=== PATIENT | female | born 1970 | race Caucasian/White ===

== ENCOUNTER → 2018-04-19 10:20 | Outpatient (CLI) | payer OTHER, SELFPAY ==
--- NOTE | 2018-04-19 10:27 | US_ITS ---
STUDY: ULTRASOUND TRANSVAGINAL CLINICAL: Female, 47 years old. Right upper quadrant pain TECHNIQUE: Transvaginal COMPARISON: None. FINDINGS: Normal uterine size measuring 8.7 cm in maximal craniocaudal dimension. There are no myometrial masses. Normal endometrial thickness measuring 11.6 mm. There are no endometrial masses, and there is no fluid in the endometrial cavity. Normal uterine cervix. Normal right ovary, measuring 2.1 x 2.0 x 1.3 cm. There are multiple follicles without a dominant cyst. Normal left ovary, measuring 3.1 x 3.1 x 2.8 cm. There are multiple follicles with a dominant simple cyst measuring 2.9 x 2.9 x 2.1 cm.. There is no minimal fluid in the pelvis, likely physiologic. Polycystic ovary disease: No. US/Transvaginal Non- IMPRESSION: Simple 2.9 cm left ovarian cyst Minimal free fluid in the cul-de-sac, likely physiologic Electronically Signed: Shawn Blue MD at 11:50 EDT , Service support ,
== END ==
PROVIDERS: Visit Provider Internal Medicine Gastroenterology
DX: R10.31 Right lower quadrant pain (principal)
CPT/HCPCS: 76830; 93976

== ENCOUNTER → 2018-08-08 10:10 | Outpatient (CLI) | payer OTHER, SELFPAY ==
[2018-08-09 20:07] LABS: Endomysial Antibody IgA Negative (Negative)
[2018-08-10 10:13] LABS: Immunoglobulin A 120 mg/dL (87-352); t-Transglutaminase IgA <2 U/mL (0-3)
== END ==
PROVIDERS: Family Provider Internal Medicine; PCP Internal Medicine; Referring Provider Internal Medicine Gastroenterology; Visit Provider Internal Medicine Gastroenterology
DX: R19.7 Diarrhea, unspecified (principal)
CPT/HCPCS: 36415; 82784; 83516; 86255

== ENCOUNTER 2022-04-08 07:44 | Day surgery (SDC) | payer OTHER, SELFPAY ==
--- NOTE | 2022-03-02 07:54 | PCM.HP.BLA ---
History and Physical Date of Admission: 03/11/22 Pre-Op History and Physical ? HPI: The patient is a 51 year old female presenting for discussion regarding surgical mgmt for mostly simple 11cm left ovarinan cyst. ? pre-operative visit. She is scheduled for left ovarian cystectomy- possible oophorectomy, and bilateral salpingectomy, possible right ovarian cystectomy, for left ovarian cyst on 03/11/22. Procedure discussed along with risks, benefits and complications. Other alternatives discussed for management. Consent form signed? Yes. ? ? PAST MEDICAL HISTORY PAST MEDICAL HISTORY Diagnosis Date ? Backache, unspecified ? ? Chest pain, atypical 12/30/2011 ? pinching; left chest ? Headache(784.0) ? ? Irritable bowel syndrome ? ? Other premature beats 07/19/2007 ? ? PAST SURGICAL HISTORY PAST SURGICAL HISTORY Procedure Laterality Date ? DELIVERY ONLY ? 06/13/02 ? EXCISION OF BENIGN LESION GREATER THAN 1.25 CM ? ? ? MOLES REMOVED ? UNSPECIFIED ORAL SURGERY PROCEDURE, BY REPORT ? ? ? WISDOM TEETH ? ? ? CURRENT MEDICATIONS Current Outpatient Medications Medication Sig Dispense Refill ? propranolol (INDERAL) 20 mg tablet Take 1.5 tablets by mouth twice daily. 240 tablet 3 ? vit C,C-Tz-kodsd-lutein-zeaxan (PRESERVISION AREDS-2) 250-90-40-1 mg Take 1 capsule by mouth twice daily with meals. ? ? ? triamcinolone acetonide (KENALOG) 0.1 % cream Apply 1 application to affected area three times daily. 30 g 0 ? CALCIUM CARBONATE/VITAMIN D3 (CALCIUM + D ORAL) Take by mouth twice daily. ? ? ? No current facility-administered medications for this visit. ? ? ALLERGIES: Adhesive Tape (Rosins), Dust Mites, Environmental [Other], Prevacid [Lansoprazole], and Zithromax [Azithromycin] ? PERSONAL HISTORY: SOCIAL HISTORY Social History ? Tobacco Use ? Smoking status: Never Smoker ? Smokeless tobacco: Never Used Vaping Use ? Vaping Use: Never used Substance Use Topics ? Alcohol use: No ? Drug use: No ? FAMILY HISTORY: FAMILY HISTORY FAMILY HISTORY Problem Relation Age of Onset ? Hypertension Mother ? ? Cancer Mother ? ? Skin ? Diabetes Mother ? ? Type 2 diagnosed 06/2011 ? Stroke Mother 86 ? 06/2010 ? COPD Mother ? ? Heart Mother ? ? CHF ? Hypertension Father ? ? Cancer Father ? ? Skin ? COPD Father ? ? other (CLL) Father ? ? diagnosed 2009 ? other (multiple myeloma) Maternal Grandmother ? ? Emphysema Paternal Grandfather ? ? other (Other) Other ? ? 2nd cousin has breast cancer ? ? REVIEW OF SYMPTOMS: negative except as noted above PHYSICAL EXAMINATION: ? VITALS: Blood pressure 120/70, height 5' 5.55 (1.665 m), weight 214 lb (97.1 kg), last menstrual period 02/06/2022. ? GENERAL: The patient is well nourished, well hydrated in no acute distress. , The patient is oriented to time, place, and person. NECK: full range of motion LUNGS: Clear to auscultation bilaterally. no wheezes, rhonchi or rales HEART: Regular rate and rhythm, Normal heart sounds and No murmurs or gallops GENITALIA: deferred NEURO: A&O x 3 ? IMPRESSION: Left ovarian cyst - normal CA 125 ? PLAN: Laparoscopic Left ovarian cystectomy, possible oophorectomy, possible right cystectomy, bilateral salpingectomy ? Pt has been counseled on risks/benefits and alternatives of surgery including but not limited to anesthesia, bleeding, infection, injury to pelvic structures including bowel, bladder, ureters and vessels. Pt wishes to proceed with surgery at this time. Reviewed will try not to rupture cyst but sometimes unavoidable- if malignant this could change stage of disease. Pt verbalized understanding. ? Pre and post op instructions reviewed. ? I have reviewed and updated past medical and surgical history, medications and allergies Julia Zafar MD ?1:03 PM
--- NOTE | 2022-03-07 08:51 | EKG12_ITS ---
Test Reason : PRE OP Blood Pressure : / mmHG Vent. Rate : 059 BPM Atrial Rate : 059 BPM P-R Int : 158 ms QRS Dur : 080 ms QT Int : 396 ms P-R-T Axes : 063 038 -36 degrees QTc Int : 392 ms Sinus bradycardia with sinus arrhythmia ST & T wave abnormality, consider inferior ischemia Abnormal ECG Confirmed by LUIGI HERNANDEZ, KATIE ([id number]), editor map KAROLYN BANERJEE ([id number]) on 03/07/2022 1:30:56 PM Referred By: Julia Huff Confirmed By:KATIE MEYERS MD
[2022-03-07 09:33] LABS: Hematocrit 42.9 % (37-47); Hemoglobin 13.9 g/dL (12.0-15.0); Mean Corp Hgb Conc 32.4 g/dL (32-36); Mean Corpuscular Hgb 28.9 pg (27.0-32.0); Mean Corpuscular Volume 89.2 fL (81-99); Mean Platelet Vol. 11.9 fl (6.2-12.0); Platelet Count 278 K/mm3 (150-450); RBC Distribution Width CV 12.7 % (11.6-14.6); RBC Distribution Width SD 41.9 fl (35.1-43.9); Red Blood Count 4.81 M/mm3 (4.2-5.4); White Blood Count 9.4 K/mm3 (4.4-11.0)
[2022-03-07 10:03] LABS: Anion Gap 4 (5-15); BUN 9 mg/dL (7-18); BUN/Creat Ratio 11.2 RATIO (10-20); Chloride 106 mmol/L (98-107); Creatinine, Serum 0.81 mg/dL (0.55-1.02); EST Glomerular Filtration Rate 79 mL/min (>60); Est Glom Filt Rate - Afr Amer 96 mL/min (>60); Glucose 99 mg/dL (74-106); Potassium 3.9 mmol/L (3.5-5.1); Sodium Level 140 mmol/L (136-145)
--- NOTE | 2022-03-30 12:55 | PCM.HP.BLA ---
History and Physical Date of Admission: 04/08/22 Pre-Op History and Physical ? HPI: The patient is a 51 year old female presenting for pre-operative visit. She is scheduled for left ovarian cystectomy, possible oophorecetomy, possible right ovarian cystectomy, bilateral salpingectomy, for ovarian cyst, pelvic pain on 04/08/22- this was rescheduled from 03-11-22 due to cardiac clearance for abnormal EKG. Procedure discussed along with risks, benefits and complications. Other alternatives discussed for management. Consent form signed? Yes. ? ? PAST MEDICAL HISTORY PAST MEDICAL HISTORY Diagnosis Date ? Backache, unspecified ? ? Chest pain, atypical 12/30/2011 ? pinching; left chest ? Headache(784.0) ? ? Irritable bowel syndrome ? ? Other premature beats 07/19/2007 ? ? PAST SURGICAL HISTORY PAST SURGICAL HISTORY Procedure Laterality Date ? DELIVERY ONLY ? 06/13/02 ? EXCISION OF BENIGN LESION GREATER THAN 1.25 CM ? ? ? MOLES REMOVED ? UNSPECIFIED ORAL SURGERY PROCEDURE, BY REPORT ? ? ? WISDOM TEETH ? ? ? CURRENT MEDICATIONS Current Outpatient Medications Medication Sig Dispense Refill ? propranolol (INDERAL) 20 mg tablet Take 1.5 tablets by mouth twice daily. 240 tablet 3 ? vit C,Z-Ai-snazz-lutein-zeaxan (PRESERVISION AREDS-2) 250-90-40-1 mg Take 1 capsule by mouth twice daily with meals. ? ? ? triamcinolone acetonide (KENALOG) 0.1 % cream Apply 1 application to affected area three times daily. 30 g 0 ? CALCIUM CARBONATE/VITAMIN D3 (CALCIUM + D ORAL) Take by mouth twice daily. ? ? ? No current facility-administered medications for this visit. ? ? ALLERGIES: Adhesive Tape (Rosins), Dust Mites, Environmental [Other], Prevacid [Lansoprazole], and Zithromax [Azithromycin] ? PERSONAL HISTORY: SOCIAL HISTORY Social History ? Tobacco Use ? Smoking status: Never Smoker ? Smokeless tobacco: Never Used Vaping Use ? Vaping Use: Never used Substance Use Topics ? Alcohol use: No ? Drug use: No ? FAMILY HISTORY: FAMILY HISTORY FAMILY HISTORY Problem Relation Age of Onset ? Hypertension Mother ? ? Cancer Mother ? ? Skin ? Diabetes Mother ? ? Type 2 diagnosed 06/2011 ? Stroke Mother 86 ? 06/2010 ? COPD Mother ? ? Heart Mother ? ? CHF ? Hypertension Father ? ? Cancer Father ? ? Skin ? COPD Father ? ? other (CLL) Father ? ? diagnosed 2009 ? other (multiple myeloma) Maternal Grandmother ? ? Emphysema Paternal Grandfather ? ? other (Other) Other ? ? 2nd cousin has breast cancer ? ? REVIEW OF SYMPTOMS: negative except as noted above PHYSICAL EXAMINATION: ? VITALS: Blood pressure 118/68, weight 211 lb (95.7 kg), last menstrual period 03/26/2022. ? GENERAL: The patient is well nourished, well hydrated in no acute distress. , The patient is oriented to time, place, and person. NECK: full range of motion CARDIAC: clearance received from 03/23/22 ANDREW- stress test done ? IMPRESSION: Left ovarian cyst, pelvic pain ? PLAN: Left ovarian cystectomy, possible oophorectomy, possible right ovarian cystectomy, bilateral salpingectomy ? Pt has been counseled on risks/benefits and alternatives of surgery including but not limited to anesthesia, bleeding, infection, injury to pelvic structures including bowel, bladder, ureters and vessels. Pt wishes to proceed with surgery at this time. Reviewed if BSO need to be performed surgical menopausal status. Advised I would ultimately like to keep at least one ovary as she is not menopausal ? Consent signed. PRE AND POST OP instructions reviewed ? ? ? I have reviewed and updated past medical and surgical history, medications and allergies Julia Zafar MD ?9:40 AM
[2022-04-08] VITALS (7 sets, daily range): BP systolic 104–148; BP diastolic 63–98; PULSE 58–71; RESP 16; TEMP 36.6–36.9; O2SAT 94–100; BMI 34.7
--- NOTE | 2022-04-08 | OV_PTH ---
PATIENT: PETER SAMPSON LOC: [facility] U#:[id number] AGE/SX: 51/F ROOM: RE04/08/[address]: Dr. Julia Huff, MDDOB: 1970 BED: DIS: 04/08/2022 SPEC #: [id number] RECD: 04/08/22 11:50 STATUS: ANCELMO CHALO #: [id number] PINKY: 04/08/22 00:[address]: Julia uHff DEPT: SURGICAL PATHOLOGY RECD BY: Milind Rainey ENTERED: 04/08/22 11:51 SP TYPE: OVARY OTHR DR: Dr. 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 See comment. Bilateral fallopian tubes - no pathologic diagnosis. SJ:rg 04/18/2022 COMMENT The specimen is sent to [facility] for expert opinion, reviewed by Dr. Nichelle Sun and the above diagnosis is rendered. Immunohistochemistry performed at [facility] supports the above diagnosis. Dr. Sun also commented, ?clinical correlation is recommended?. The complete report is viewable in the patient's EMR. Case has been reviewed in consultation with Dr. Leon who concurs with the above diagnosis. IDC:AM MICROSCOPIC DESCRIPTION Slides are reviewed. GROSS DESCRIPTION Received in fixative is one container labeled with the patient's name and designated right fallopian tube, left fallopian tube, left ovary and left ovarian cyst. The specimen consists of a previously opened cystic structure with adjacent fallopian tube. The cystic structure measures 7 x 6 x 3 cm. The adjacent fallopian tube measures 6.5 cm in length and 1 cm in average diameter and contains a normal fimbrial end. Also present free in the container are two fragments of second fallopian tube measuring 6 cm in length and 0.8 cm in average diameter. Present free in the container are multiple irregular fragments of pink-fleming membranous tissue measuring in aggregate 6 x 5 x 0.8 cm. Child Welfare Consultant sections are submitted in four cassettes as follows: 1 ? fallopian tube free in container, 2 ? fallopian tube attached to presumed cystic ovary, 3 & 4 ? presumed cystic ovary. / AM:darleen 04/08/2022 More sections from the ovary and ovarian cyst are submitted in six more cassettes, 5-10. / SJ:darleen 04/11/2022 TC:5 CPT: 38148, 65630 ADDENDUM ADDENDUM ADDENDUM ADDENDUM ADDENDUM ADDENDUM ADDENDUM ADDENDUM ADDENDUM ADDENDUM 08/23/2022 10:16 ADDENDUM 08/23/2022 10:16 ADDENDUM 08/23/2022 10:16 ADDENDUM 08/23/2022 10:16 ADDENDUM 08/23/2022 10:16 This addendum is added to incorporate an outside pathology consultation report. The case was examined at [facility] (#[id number]) and the following diagnosis was rendered. Left ovary: Mucinous borderline tumor. Please see complete above mentioned consultation report in EMR
[2022-04-08 08:16] LABS: Internal QC Validated? YES +Cl - CLEAR BKGD; Pregnancy, Urine Negative Negative
[2022-04-08] MEDS: Lactated Ringers 1,000 ML 15 ML IV (08:26)
--- NOTE | 2022-04-08 09:16 | EX.PCM.DISCH ---
Discharge Instructions Procedure Other Diet Discharge Diet: No restrictions Activity May resume sexual activity in: 2 weeks Lifting Restrictions: 20-25 lbs Dressing / Incision Call your doctor if your incision/area has: Continuous Slow Oozing, Sudden Increased Bleeding, Increased Pain/ Swelling, Increased Redness, Foul Smelling Discharge and Swelling at the incision site Call your doctor if you observe: Fever of 101 or Higher, Inability to urinate, Inability to have a bowel movement, Using more than 1 pad per hour and Uncontrolled pain Additional Dressing/Incision Instructions:: You have skin glue over your incision sites, do not pick off. You may shower and let the soap and water run over the incision sites and dab dry. Follow Up Care Please Follow Up With: Julia Huff MD When: 1-2 weeks post OP if you need an appointment please call [phone] Test Results: Test results from this visit will be discussed in further detail at your follow-up appointment, if applicable. Discharge Plan Admission Attending Provider: Julia Huff Primary Care Provider: Delia Mayorga Discharge Orders/Prescriptions Prescriptions: No Action ibuprofen [Advil] 200 mg Tablet 400 mg PO Q8H PRN (Reason: Pain) RF: 0 propranolol 20 mg tablet 30 mg PO BID RF: 0 PreserVision AREDS-2 250-90-40-1 mg Capsule 1 tab PO BID RF: 0 Caltrate + D3 Plus Minerals 300 mg-800 unit -25 mg-0.5 mg Tablet 1 tab PO BID RF: 0
--- NOTE | 2022-04-08 09:17 | OP.PCM_ITS ---
Problems Associated Problem List Diagnoses (1) Left ovarian cyst: (2) Pelvic pain in female: Report of Operation Date of Procedure: 04/08/22 Pre-Operative Diagnosis: left ovarian cyst, pelvic pain Post-Operative Diagnosis: same Surgery/Procedure Performed:: Left BSO, Right Salpingectomy Description of Surgical Findings:: Large Left ovarian cyst- simple fluid. Right ovary normal. Both tubes normal. uterus normal. Surgeon: Julia Huff carton forming machine helper: Gloria Betts Type of Anesthesia: General and Local Special Medications: 0.5%marcaine Specimen's removed: Left ovary, cyst, and left fallopian tube, Right fallopian tube Drains: none Estimated Blood Loss (mL): 5cc Fluids Replaced: 1000cc Description of Procedure: After informed consent was obtained patient was taken to the operating room she was placed in supine position she was given anesthesia. She was then placed in the [facility] stirrups and she was prepped and draped in normal sterile fashion. Bladder was drained prior to the start of procedure approximately 50cc of clear yellow urine was expelled. At this time attention was turned to the vaginal portion where weighted speculum placed at posterior fornix vagina single-tooth tenaculum was used to gently grasp the internal the cervix. uterus was gently sounded to approximately 8cm. Uterine manipulator was placed without difficulty. Legs then placed in parallel with the abdomen the tenaculum and the weighted speculum were removed. 2 towel clamps were placed at superior umbilicus. After Marcaine was injected superior to umbilicus a small incision was made and a 5 mm trocar was placed under direct visualization. CO2 gas was used to insufflate the intra-abdominal cavity. Upon inspection large left ovarian cyst- normal culdesac, uterus, tubes and right ovary normal . At this time then the LLQ port was placed again Marcaine was injected small incision was made a knife and the 5 mm trocar was placed. this was repeated on right side. Decision at this time due to limited manipulation of cyst- Cyst punctured with nipple tip attached to suction irritation machine - 560cc straw colored fluid expelled. once cyst deflated Ligasure was used to coagulate and ligate along IP ligament, uteroovarian and the mesosalpinx on left complete removal of tube and ovary and cyst on left. Right fallopian tube traced back to fimbriated end and ligasure used to coagulate and ligate along mesosalpinx. tube removed. Good hemostasis was appreciated. 5mm EndoCatch bag placed at umbilical site, specimen placed and removed. Fascia was extended at umbilicus to remove specimen. Excellent hemostasis noted of all pedicles. Fascia was then closed using 0-vicryl in runnnig fashion. At this time procedure was deemed complete successful. The gas was desufflated on from the intra-abdominal cavity. The trochars were removed. Skin was closed using 4-0 Monocryl in a subcutaneous fashion. Dermabond glue was placed. Instrument lap and needle counts were correct ?2. The uterine manipulator was removed. Vaginal sweep was performed it was negative. There were no complications anticipated normal postoperative course for this patient. no qulaififed resident. Poultry Offal Worker helped to manipulate camera and retract Grafts/Implants Used: none Procedure Start Time: 09:49 Procedure Stop Time: 10:22 Complications none Admit VTE Documentation VTE Present on Admission: Yes VTE Mechan Device Prophylaxis: SCD's VTE Pharm Prophylaxis ordered?: No Reason prophylaxis not ordered:: Procedure Not Indicated
[2022-04-08] MEDS: Bupivacaine Mpf 0.5% 30 ML VIAL (10:21)
== END 2022-04-08 13:28 | disposition home or self-care (01) ==
LOC: SDC 07:44 → AC 07:45
PROVIDERS: PCP Internal Medicine; Referring Provider Obstetrics & Gynecology; Visit Provider Obstetrics & Gynecology
PROC: (CPT 58661; principal; 2022-04-08 08:55)
DX: D27.1 Benign neoplasm of left ovary (principal); F41.9 Anxiety disorder, unspecified; Z79.899 Other long term (current) drug therapy
CPT/HCPCS: 58661; 00840; 36415; 80048; 81025; 85027; 88305; 88307; 93005; J7120; J2405